=== PATIENT | male | born 1955 | race Caucasian/White ===

== ENCOUNTER 2017-07-14 16:00 | Emergency (ER) | payer OTHER ==
--- NOTE | 2017-07-14 16:42 | RAD ---
HISTORY: Head injury COMPARISONS: November 07, 2014 TECHNIQUE: Multiple contiguous axial CT scans were obtained of the head without intravenous contrast. FINDINGS: HEMORRHAGE/INFARCT: There is no hemorrhage or acute infarct. MASSES/SHIFT: There is no mass or shift. EXTRA-AXIAL SPACES: There are no extra-axial fluid collections. SULCI AND VENTRICLES: The sulci and ventricles are normal in size and position for the patient's stated age. CEREBRUM: There are no focal parenchymal abnormalities. BRAINSTEM: There are no focal parenchymal abnormalities. CEREBELLUM: There are no focal parenchymal abnormalities. VESSELS: The vessels are grossly normal. PARANASAL SINUSES: The paranasal sinuses are clear. ORBITS: The orbits are unremarkable. BONES AND SOFT TISSUE: No bone or soft tissue abnormalities are noted. OTHER: None IMPRESSION: NO ACUTE INTRACRANIAL PATHOLOGY.
[2017-07-14] MEDS ORDERED: Ondansetron ODT TAB* 4 MG PO ONE (16:59)
[2017-07-14] MEDS ORDERED: Ibuprofen TAB* 600 MG PO ONE (17:05)
--- NOTE | 2017-07-14 17:30 | RAD ---
HISTORY: Head injury, nausea, dizziness, neck pain status post fall COMPARISONS: November 07, 2014 TECHNIQUE: Multiple contiguous axial CT scans were obtained of the cervical spine without intravenous contrast, with coronal and sagittal multiplanar reformations. FINDINGS: BRAIN: The visualized brain is unremarkable CENTRAL CANAL: Evaluation of the central canal is limited on CT technique; however, there is no obvious canalicular mass or epidural hemorrhage. ALIGNMENT: There is straightening of the cervical lordosis. VERTEBRAL BODIES: There is multilevel anterolateral marginal osteophyte formation. The patient is status post laminectomy at C4-C5, C5-C6, and C6-C7. There is no displaced fracture. JOINTS: There is uncovertebral and facet osteoarthritis. MUSCULATURE: Unremarkable INTERVERTEBRAL DISCS: There is diffuse loss of intervertebral disc height. AXIAL IMAGES: On axial images, there is diffuse multilevel neural foraminal narrowing secondary to uncovertebral and facet hypertrophy. There is no osseous central canal stenosis. SOFT TISSUES: The visualized soft tissues of the neck are unremarkable. The prevertebral fat stripe is preserved. OTHER: None. IMPRESSION: 1. POST SURGICAL CHANGE. 2. DEGENERATIVE DISC DISEASE AND OSTEOARTHRITIS. 3. NO ACUTE OSSEOUS INJURY TO THE CERVICAL SPINE
--- NOTE | 2017-07-14 17:57 | RAD ---
HISTORY: Right knee pain status post fall COMPARISONS: None VIEWS: 4, Frontal, lateral, axial, and oblique views of the right knee FINDINGS: BONE DENSITY: Normal. BONES: There is no displaced fracture. JOINTS: There is moderate tricompartmental osteoarthritis. There is no suprapatellar joint effusion or lipohemarthrosis. ALIGNMENT: There is no dislocation. SOFT TISSUES: Unremarkable. OTHER FINDINGS: None. IMPRESSION: OSTEOARTHRITIS. NO ACUTE OSSEOUS INJURY. IF SYMPTOMS PERSIST, RECOMMEND REPEAT IMAGING.
--- NOTE | 2017-07-14 17:58 | RAD ---
HISTORY: Right elbow pain status post fall COMPARISONS: None VIEWS: 4, Frontal, lateral, and oblique views of the right elbow FINDINGS: BONE DENSITY: Normal. BONES: There is no displaced fracture. JOINTS: There is no arthropathy. The There is no posterior supracondylar fat pad to suggest a joint effusion. ALIGNMENT: There is no dislocation. SOFT TISSUES: Unremarkable. OTHER FINDINGS: None. IMPRESSION: NO ACUTE OSSEOUS INJURY. IF SYMPTOMS PERSIST, RECOMMEND REPEAT IMAGING.
--- NOTE | 2017-07-14 17:58 | RAD ---
HISTORY: Right shoulder pain status post fall COMPARISONS: November 07, 2014 VIEWS: 4, Frontal internal rotation, external rotation, outlet, and axillary views of the right shoulder FINDINGS: BONE DENSITY: There is diffuse osteopenia. BONES: There is no displaced fracture. JOINTS: There is mild glenohumeral and a.c. osteoarthritis. ALIGNMENT: There is no dislocation. SOFT TISSUES: Unremarkable. OTHER FINDINGS: None. IMPRESSION: OSTEOARTHRITIS. NO ACUTE OSSEOUS INJURY. IF SYMPTOMS PERSIST, RECOMMEND REPEAT IMAGING.
[2017-07-14] MEDS ORDERED: Lidocaine 1%* 5 ML VIAL INJ ONE (18:46)
[2017-07-14] MEDS ORDERED: Lidocaine 1%* 5 ML VIAL ONE (18:47)
[2017-07-14] MEDS ORDERED: Cephalexin CAP* 500 MG PO ONE (19:40)
[2017-07-14] MEDS ORDERED: Tetan/Diph/Pertus SYR(Tdap)* 0.5 ML SYR(BOOSTRIX) use SYR IM ONE (19:41)
--- NOTE | 2017-07-14 19:52 | ED ---
Theresa William Thomas, scribed for Arturo Cerda MD on 07/14/17 at 1810 . Complex/Multi-Sys Presentation - HPI Summary HPI Summary: The pt is a 62 y/o M presenting to the ED c/o head pain and RUE pain after striking his head on a rock in an accidental fall earlier today. He c/o head pain, R-sided neck pain, R shoulder, R knee, R arm, and R elbow pain. He is unsure if he had LOC. He additionally c/o decreased hearing in his right ear, R ear pain, R-sided dental pain, and nausea. The pain is aggravated by nothing and is alleviated by nothing. The patient has treated the pain with nothing DIRECTOR PLANS. Pt denies vomiting, back pain, and rib pain. He is not on blood thinners. - History Of Current Complaint Chief Complaint: EDHeadInjury Time Seen by Provider: 07/14/17 16:33 Hx Obtained From: Patient Onset/Duration: Lasting Hours - earlier today, Still Present Timing: Constant Severity Currently: Moderate Location: Pain At: - Right upper extremity Aggravating Factor(s): None Alleviating Factor(s): None Associated Signs And Symptoms: Positive: Other - Nausea, pain in head, right neck, right shoulder, right arm, right elbow, ear, right dental, right knee; NEGATIVE: vomiting, back and rib pain - Allergies/Home Medications Allergies/Adverse Reactions: Allergies Allergy/AdvReac Type Severity Reaction Status Date / Time Iodinated Diagnostic Agents Allergy Mild Rash And Verified 04/06/14 18:39 Itching Penicillins Allergy Rash And Verified 04/06/14 16:54 Itching ENVIRONMENTAL/SEASONAL Allergy SNEEZE, Uncoded 04/06/14 16:54 HAYFEVER WATERY EYES PMH/Surg Hx/FS Hx/Imm Hx Previously Healthy: No Endocrine/Hematology History: Denies: Hx Diabetes Cardiovascular History: Reports: Hx Hypertension - ON MEDS, Other Cardiovascular Problems/Disorders - Hx HTN Denies: Hx Congestive Heart Failure, Hx Pacemaker/ICD Respiratory History: Reports: Other Respiratory Problems/Disorders - MILD Denies: Hx Asthma History: Denies: Hx Renal Disease Musculoskeletal History: Reports: Hx Back Problems, Other Musculoskeletal History - Laminectomy C4-5-6 Sensory History: Reports: Hx Cataracts - MILD, Hx Contacts or Glasses Denies: Hx Hearing Aid Opthamlomology History: Reports: Hx Cataracts - MILD, Hx Contacts or Glasses Neurological History: Reports: 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 2012 RIGHT INGUINAL HERNIA REPAIR [facility]. 1988 AND 1998 LEFT INGUINAL [place]ERNIA [place]PAIR, [facility] [place]. 2012 RT KNEE SCOPE Hx Anesthesia Reactions: Yes - 2011-VERY AGGRESSIVE WITH SEDATION THIS TIME ONLY - Immunization History Date of Tetanus Vaccine: Unk Date of Influenza Vaccine: None Infectious Disease History: No Infectious Disease History: Denies: Traveled Outside the [place] in Last 30 Days - Social History Alcohol Use: Occasionally Substance Use Type: Reports: None Hx Tobacco Use: No Smoking Status (MU): Never Smoked Tobacco Review of Systems Positive: Other - Head pain Positive: Dental Pain - Right side, Ear Ache Positive: Nausea. Negative: Vomiting Positive: Other - Pain in right neck, right shoulder, right arm, right elbow, right knee; NEGATIVE: back and rib pain All Other Systems Reviewed And Are Negative: Yes Physical Exam - Summary Physical Exam Summary: General: well-appearing, mild pain distress Skin: warm, color reflects adequate perfusion, dry. No skin lacerations. Right shoulder abrasion. Head: normal Eyes: EOMI, TOBI ENT: Tympanic membrane is normal. Tenderness with palpation to the tragus. Neck: supple. Tenderness with palpation to the right neck. Respiratory: CTA, breath sounds present. Cardiovascular: RRR. Good capillary refill. Abdomen: soft, nontender Bowel: present Musculoskeletal: Ecchymosis on right shoulder, right scapula, right elbow and right anterior knee. Right scapula is non-tender with palpation. Pain with ROM to the right shoulder and right elbow. Right anterior knee is tender with motion. Neurological: normal, sensory/motor intact, A&O x3 Psychological: affect/mood appropriate Triage Information Reviewed: Yes Vital Signs On Initial Exam: Initial Vitals Temp Pulse Resp BP Pulse Ox 98.4 F 120 20 117/83 97 07/14/17 16:02 07/14/17 16:02 07/14/17 16:02 07/14/17 16:02 07/14/17 16:02 Vital Signs Reviewed: Yes - [place] Coma Scale Coma Scale Total: 15 Procedures - Laceration/Wound Repair 1 Location: head Description: Irregular Anesthesia: Local, 1.0%, [place] Length, Depth and Shape: 2.5CM SC IRREGULAR Betadine Prep?: No - IRRIGATED WITH SHUR CLENS AND SALINE 30CC Laceration/Wound Explored: clean, no foreign body removed Closure: Single Layer Suture Type: Prolene - 4-0 PROLENE, #5 Number of Sutures: 5 Layer Closure?: No Sterile Dressing Applied?: Yes Diagnostics - Vital Signs Vital Signs Temp Pulse Resp BP Pulse Ox 07/14/17 16:02 98.4 F 120 20 117/83 97 - Laboratory Lab Statement: Any lab studies that have been ordered have been reviewed, and results considered in the medical decision making process. - Radiology XR Shoulder Xray Interpretation: No Acute Changes - OSTEOARTHRITIS. NO ACUTE OSSEOUS INJURY. IF SYMPTOMS PERSIST, RECOMMEND REPEAT IMAGING. ED Physician has reviewed this report and agrees. Radiology Interpretation Completed By: Radiologist XR Knee Xray Interpretation: No Acute Changes - OSTEOARTHRITIS. NO ACUTE OSSEOUS INJURY. IF SYMPTOMS PERSIST, RECOMMEND REPEAT IMAGING. ED Physician has reviewed this report and agrees. Radiology Interpretation Completed By: Radiologist XR Elbow Xray Interpretation: No Acute Changes - NO ACUTE OSSEOUS INJURY. IF SYMPTOMS PERSIST, RECOMMEND REPEAT IMAGING. ED Physician has reviewed this report and agrees. Radiology Interpretation Completed By: Radiologist - CT CT C-Spine CT Interpretation: No Acute Changes - 1. POST SURGICAL CHANGE. 2. DEGENERATIVE DISC DISEASE AND OSTEOARTHRITIS. 3. NO ACUTE OSSEOUS INJURY TO THE CERVICAL SPINE. ED physician has reviewed this report and agrees. CT Interpretation Completed By: Radiologist CT Brain CT Interpretation: No Acute Changes - NO ACUTE INTRACRANIAL PATHOLOGY. ED Physician has reviewed this report and agrees. CT Interpretation Completed By: Radiologist Complex Multi-Symp Course/Dx Course Of Treatment: Medications reviewed. Allergies noted. DISCUSSED RESULTS WITH PATIENT AND FAMILY. LACERATION CLOSED. TDap GIVEN. NO CRITICAL CARE TIME. - Diagnoses Provider Diagnoses: Head injury, Concussion, Scalp laceration, Shoulder contusion, Cervical strain , Contusion of knee, right Discharge - Discharge Plan Condition: Stable Disposition: HOME Prescriptions: Cephalexin CAP* [Keflex CAP*] 500 mg PO TID #20 cap Patient Education Materials: Head Injury (ED), Concussion (ED), Cervical Strain (ED), Shoulder Sprain (ED), Knee Pain (ED), Contusion in Adults (ED), Care For Your Stitches (ED), Laceration (ED) Forms: *Work Release Referrals: Scot Maloney MD [Primary Care Provider] - Additional Instructions: FOLLOW UP WITH YOUR DOCTOR. SUTURES OUT IN 7-10 DAYS. RETURN TO THE EMERGENCY DEPARTMENT FOR ANY WORSENING OF YOUR CONDITION; WEAKNESS , NUMBNESS, FEVER, SIGNS OF INFECTION, YOU DO NOT FEEL WELL, SHORTNESS OF BREATH OR QUESTIONS OR CONCERNS. The documentation as recorded by the Theresa munoz Thomas accurately reflects the service I personally performed and the decisions made by me, Arturo Cerda MD.
[2017-07-14] MEDS: Cephalexin CAP* 500 MG PO ONE (19:59)
[2017-07-14 20:13] VITALS: BP 114/84
== END 2017-07-14 20:12 | disposition home or self-care (01) ==
LOC: ED 16:00
DX: S09.90XA Unspecified injury of head, initial encounter (principal); S06.0X0A Concussion without loss of consciousness, initial encounter; S01.01XA Laceration without foreign body of scalp, initial encounter; S16.1XXA Strain of muscle, fascia and tendon at neck level, initial encounter; S80.01XA Contusion of right knee, initial encounter; I10 Essential (primary) hypertension; W01.198A Fall on same level from slipping, tripping and stumbling with subsequent striking against other object, initial encounter; Y92.9 Unspecified place or not applicable
CPT/HCPCS: 12001; 70450; 72125; 90471; 90715; 99283; A9270-GY

== ENCOUNTER 2017-07-16 21:28 | Emergency (ER) | payer OTHER ==
[2017-07-16] MEDS ORDERED: NS 0.9% 1000 ML* 1,000 ML IV ONE (22:23)
[2017-07-16] MEDS ORDERED: Clindamycin 600 MG IVPREMIX(* 600 MG/50 ML SDV IV ONE (22:37)
[2017-07-16 23:10] LABS: Hematocrit 42 % (42-52); Hemoglobin 13.8 g/dl (14.0-18.0); Mean Corpuscular HGB Conc 33 g/dl (31-36); Mean Corpuscular Hemoglobin 31 pg (27-31); Mean Corpuscular Volume 92 fL (80-94); Mean Platelet Volume 8 um3 (7.4-10.4); Red Blood Count 4.54 10^6/ul (4.0-5.4); Red Cell Distribution Width 13 % (10.5-15); White Blood Count 10.3 10^3/ul (3.5-10.8)
[2017-07-16] MEDS ORDERED: oxyCODONE/Acetamin 5/325 MG* TAB PO ONE (23:20)
[2017-07-16 23:30] LABS: Albumin 3.7 g/dL (3.2-5.2); BUN/Creatinine Ratio 20.5 (8-20); Calcium 9.1 mg/dL (8.6-10.3); EGFR African American 112.5 (>60); EGFR Non-African American 87.5 (>60); Globulin 2.9 g/dL (2-4); Potassium 3.8 mmol/L (3.5-5.0); Total Bilirubin 0.2 mg/dL (0.2-1.0); Total Protein 6.6 g/dL (6.4-8.9)
[2017-07-16] MEDS ORDERED: Ondansetron ODT TAB* 4 MG PO ONE (23:35)
[2017-07-17] MEDS ORDERED: oxyCODONE/Acetamin 5/325 MG* TAB PO ONE (00:16)
--- NOTE | 2017-07-17 00:17 | ED ---
Skin Complaint - HPI Summary HPI Summary: 62M presents with increasing pressure and pus drainage from right scalp laceration. He fell [facility] two days ago and had a scalp laceration. The area was sutured with 5 sutures. He states he has been taking the keflex and everything was doing fine until today he felt the pressure and now has extreme pain. He denies any fever. He states that the redness has been spreading down his neck. states feels like something is about to burst from head. pain is 10/10. no history of MRSA. is not diabetic. - History of Current Complaint Chief Complaint: EDLacSutureRecheck Time Seen by Provider: 07/16/17 22:03 Stated Complaint: INFLAMMATION IN STITCHES IN HEAD Pain Intensity: 4 - Allergy/Home Medications Allergies/Adverse Reactions: Allergies Allergy/AdvReac Type Severity Reaction Status Date / Time Iodinated Diagnostic Agents Allergy Mild Rash And Verified 04/06/14 18:39 Itching Penicillins Allergy Rash And Verified 04/06/14 16:54 Itching ENVIRONMENTAL/SEASONAL Allergy SNEEZE, Uncoded 04/06/14 16:54 HAYFEVER WATERY EYES PMH/Surg Hx/FS Hx/Imm Hx Endocrine/Hematology History: Denies: Hx Diabetes Cardiovascular History: Reports: Hx Hypertension - ON MEDS, Other Cardiovascular Problems/Disorders - Hx HTN Denies: Hx Congestive Heart Failure, Hx Pacemaker/ICD Respiratory History: Reports: Other Respiratory Problems/Disorders - MILD Denies: Hx Asthma History: Denies: Hx Renal Disease Musculoskeletal History: Reports: Hx Back Problems, Other Musculoskeletal History - Laminectomy C4-5-6 Sensory History: Reports: Hx Cataracts - MILD, Hx Contacts or Glasses Denies: Hx Hearing Aid Opthamlomology History: Reports: Hx Cataracts - MILD, Hx Contacts or Glasses Neurological History: Reports: Hx Spinal Cord Injury - LAMINECTOMY C4-6 Psychiatric History: Denies: Hx Panic Disorder - Surgical History Surgery Procedure, Year, and Place: 2004 C4,5,6[place] [facility] [place] [facility] [place]. 1988 AND 1998 LEFT INGUINAL [place], [facility] [place]. 2012 RT KNEE SCOPE Hx Anesthesia Reactions: Yes - 2011-VERY AGGRESSIVE WITH SEDATION THIS TIME ONLY - Immunization History Date of Tetanus Vaccine: Unk Date of Influenza Vaccine: None Infectious Disease History: No Infectious Disease History: Denies: Traveled Outside the [place] in Last 30 Days - Family History Known Family History: Negative: Diabetes - Social History Alcohol Use: Occasionally Substance Use Type: Reports: None Hx Tobacco Use: No Smoking Status (MU): Never Smoked Tobacco Review of Systems Negative: Fever Negative: Chest Pain Negative: Shortness Of Breath Positive: Other - pain under laceration All Other Systems Reviewed And Are Negative: Yes Physical Exam Triage Information Reviewed: Yes Vital Signs On Initial Exam: Initial Vitals Temp Pulse Resp BP Pulse Ox 97.6 F 102 20 154/93 95 07/16/17 21:42 07/16/17 21:42 07/16/17 21:42 07/16/17 21:42 07/16/17 21:42 Vital Signs Reviewed: Yes Appearance: Positive: Well-Appearing Skin: Positive: Warm, Dry, Other - 2cm healing laceration with pus and 7cm by 4cm area of erythema with warmth down neck Eyes: Positive: Normal, EOMI, TOBI, Conjunctiva Clear ENT: Positive: Normal ENT inspection, Pharynx normal, TM bulging Respiratory/Lung Sounds: Positive: Clear to Auscultation, Breath Sounds Present Cardiovascular: Positive: Normal, RRR Musculoskeletal: Positive: Normal Neurological: Positive: Normal Psychiatric: Positive: Normal - Odd Coma Scale Coma Scale Total: 15 Procedures - Incision and Drainage Site: scalp Anesthesia: Local Instrument(s): Other - opened suture area Packing: Gauze Diagnostics - Vital Signs Vital Signs Temp Pulse Resp BP Pulse Ox 07/16/17 23:39 18 07/16/17 21:42 97.6 F 102 20 154/93 95 - Laboratory Lab Results: Lab Results 07/16/17 07/16/17 07/16/17 Range/Units 22:50 22:50 22:50 WBC 10.3 (3.5-10.8) 10^3/ul RBC 4.54 (4.0-5.4) 10^6/ul Hgb 13.8 L (14.0-18.0) g/dl Hct 42 (42-52) % MCV 92 (80-94) fL MCH 31 (27-31) pg MCHC 33 (31-36) g/dl RDW 13 (10.5-15) % Plt Count 199 (150-450) 10^3/ul MPV 8 (7.4-10.4) um3 Neut % (Auto) 63.3 (38-83) % Lymph % (Auto) 25.2 (25-47) % Russell % (Auto) 8.5 (1-9) % Eos % (Auto) 1.8 (0-6) % Baso % (Auto) 1.2 (0-2) % Absolute Neuts (auto) 6.5 (1.5-7.7) 10^3/ul Absolute Lymphs (auto) 2.6 (1.0-4.8) 10^3/ul Absolute Monos (auto) 0.9 H (0-0.8) 10^3/ul Absolute Eos (auto) 0.2 (0-0.6) 10^3/ul Absolute Basos (auto) 0.1 (0-0.2) 10^3/ul Absolute Nucleated RBC 0.01 10^3/ul Nucleated RBC % 0.1 Sodium 135 (133-145) mmol/L Potassium 3.8 (3.5-5.0) mmol/L Chloride 104 (101-111) mmol/L Carbon Dioxide 26 (22-32) mmol/L Anion Gap 5 (2-11) mmol/L BUN 18 (6-24) mg/dL Creatinine 0.88 (0.67-1.17) mg/dL Est GFR ( Amer) 112.5 (>60) Est GFR (Non-Af Amer) 87.5 (>60) BUN/Creatinine Ratio 20.5 H (8-20) Glucose 133 H (70-100) mg/dL Lactic Acid 1.1 (0.5-2.0) mmol/L Calcium 9.1 (8.6-10.3) mg/dL Total Bilirubin 0.20 (0.2-1.0) mg/dL AST 15 (13-39) U/L ALT 16 (7-52) U/L Alkaline Phosphatase 59 (34-104) U/L C-React Prot High Sens 49.48 mg/L Total Protein 6.6 (6.4-8.9) g/dL Albumin 3.7 (3.2-5.2) g/dL Globulin 2.9 (2-4) g/dL Albumin/Globulin Ratio 1.3 (1-3) Result Diagrams: 07/16/17 22:50 07/16/17 22:50 Lab Statement: Any lab studies that have been ordered have been reviewed, and results considered in the medical decision making process. - Radiology neck Xray Interpretation: Positive (See Comments) - swelling right temrproarl scalp Radiology Interpretation Completed By: Radiologist Course/Dx - Course Course Of Treatment: 62M presents with increasing pressure and pus drainage from right scalp laceration. He [place] [facility] two days ago and had a scalp laceration. The area was sutured with 5 sutures. He states he has been taking the keflex and everything was doing fine until today he felt the pressure and now has extreme pain. He denies any fever. He states that the redness has been spreading down his neck. states feels like something is about to burst from head. pain is 10/10. no history of MRSA. is not diabetic. on exam has erythema around lacerations with pus from wound. removed sutures and drain wound and placed packing. about 15cc from wound. CT shows cellulitis and abscess. labs normal wbc and lactic. will discharge with bactrim to cover for MRSA. told to return to have packing changed in two days. - Differential Diagnoses - Skin Complaint Differential Diagnoses: Abscess, Cellulitis, Other - dehiscence - Diagnoses Provider Diagnoses: Wound abscess Discharge - Discharge Plan Condition: Good Disposition: HOME Prescriptions: Sulfamethox/Trimethoprim DS* [Bactrim DS 800/160 TAB*] 1 tab PO BID #20 tab oxyCODONE/Acetamin 5/325 MG* [Percocet 5/325 TAB*] 1 tab PO Q6H PRN #12 tab MDD 4 PRN Reason: Pain Patient Education Materials: Abscess (ED) Forms: *Work Release Referrals: Scot Maloney MD [Primary Care Provider] - Additional Instructions: Take antibiotic twice a day for 10 days, first dose given in ED, Continue keflex as prescribed Apply warm compresses to area Take ibuprofen or Tylenol for pain every 6 hours Return to ED or urgent care in two days for wound check Return to ED if develop fever, area of redness spreads after two days on antibiotic, or any new or worsening symptoms
[2017-07-17 00:54] VITALS: BP 144/91
--- NOTE | 2017-07-17 07:50 | RAD ---
INDICATION: "Infected wound behind right ear" COMPARISON: CT cervical spine dated July 14, 2017 TECHNIQUE: A CT scan of the neck was performed without contrast. Contiguous axial sections were obtained from the skull base through the lung apices. Images were reconstructed in the coronal and sagittal planes. FINDINGS: In the soft tissue overlying the right temporal bone just posterior and inferior to the right ear there are several foci of subcutaneous gas (image 84 of 102) and thickening of the subcutaneous tissue up to 1.3 cm in thickness. There is no drainable fluid collection. The airway is patent. The epiglottis and aryepiglottic folds appear within normal limits. No retropharyngeal soft tissue swelling is noted. No significant enlarged nodes are seen. The parotid and submandibular glands appear to be within normal limits. The thyroid gland appears normal. The lung apices appear clear. The visualized portion of the paranasal sinuses and mastoid air cells appear clear. No significant focal osseous abnormality is seen. IMPRESSION: In the subcutaneous tissue overlying the right temporal bone below the right ear there is thickening of the tissue with subcutaneous gas which could be associated with trauma if recent or infection due to gas-forming microorganisms if subacute/chronic. There is no drainable fluid collection. The subjacent mastoid air cells are well aerated and there are no signs of intracranial infection.
== END 2017-07-17 00:53 | disposition home or self-care (01) ==
LOC: ED 21:28
DX: S01.01XA Laceration without foreign body of scalp, initial encounter (principal); T81.4XXA Infection following a procedure, initial encounter; L02.91 Cutaneous abscess, unspecified; W19.XXXA Unspecified fall, initial encounter; Y93.9 Activity, unspecified; Y92.9 Unspecified place or not applicable; Z86.79 Personal history of other diseases of the circulatory system
CPT/HCPCS: 36415; 70490; 80053; 83605; 85025; 86141; 87040; 87070; 87077; 87186; 87205; 99283; A9270-GY

== ENCOUNTER 2024-09-05 07:07 | Observation (INO) ==
[~2024-09-05 07:07] MED LIST: Bupivacaine 0.25% SDV 30 ML ONE
[2024-09-05] MEDS ORDERED: Lidocaine 2% PF 5 ML VIAL ONE (07:17)
[2024-09-05] MEDS ORDERED: Midazolam 2 mg/2 ml VIAL 1 mg/ml 2 ml VIAL (2 mg) ONE ×2 (07:18→09:31)
[2024-09-05] MEDS ORDERED: fentaNYL 250 mcg/5 ml 50 MCG/ML 5 ml VIAL (250 MCG) ONE (07:18)
[2024-09-05] MEDS ORDERED: Tranexamic Acid 1 GM/100ML BAG 2,000 MG/200 ML BAG IV ONE (07:35)
[2024-09-05] MEDS ORDERED: ceFAZolin *3* GM in NS PREMIX 3 GM/100 ML BAG IV ONE (07:35)
[2024-09-05 07:47] LABS: Rapid COVID-19 Molecular Undetected (Undetected)
[2024-09-05] MEDS ORDERED: Tranexamic Acid 1,000 MG/10 ML SDV ONE (08:02)
[2024-09-05] MEDS ORDERED: KETAMINE HCL 10 MG/ML 20 ml VIAL (200 MG) ONE (09:06)
[2024-09-05] MEDS ORDERED: Ondansetron 4 mg VIAL 2 MG/ML 2 ml VIAL ONE (09:27)
[2024-09-05] MEDS ORDERED: Dexamethasone IV 4 MG/ML VIAL 1 ml VIAL ONE (09:27)
[2024-09-05] MEDS ORDERED: Propofol 10 MG/ML 20 ML BTL ONE ×3 (10:31→11:10)
[2024-09-05] MEDS ORDERED: fentaNYL 100 mcg/2 ml 50 MCG/ML VIAL ONE ×2 (11:38→12:09)
[2024-09-05] MEDS ORDERED: Magnesium Hydroxide LIQ 30 ML UDC PO PRN (11:38)
[2024-09-05] MEDS ORDERED: Calcium Carb (TUMS) 500 mg CHEW TAB PO PRN (11:38)
[2024-09-05] MEDS ORDERED: Ondansetron 4 mg VIAL 2 MG/ML 2 ml VIAL IV PRN ×2 (11:38→11:50)
[2024-09-05] MEDS ORDERED: Ondansetron ODT 4 mg TAB 4 MG TAB PO PRN (11:38)
[2024-09-05] MEDS ORDERED: Lactulose 30 ml UDC PO PRN (11:38)
[2024-09-05] MEDS ORDERED: Morphine 2 MG/ML SYRINGE IV PRN (11:38)
[2024-09-05] MEDS ORDERED: Naloxone 0.4 mg VIAL 0.4 mg/ml 1 ml VIAL IV PRN (11:50)
[2024-09-05] MEDS ORDERED: Metoclopramide 5 MG/ML VIAL (10 mg) IV PRN (11:50)
[2024-09-05] MEDS: fentaNYL 100 mcg/2 ml 50 MCG/ML VIAL IV PRN (11:54)
[2024-09-05] MEDS ORDERED: NS 0.45% 1000 ml BAG 1,000 ML IV SCH (12:00)
[2024-09-05] MEDS: Lactated Ringers 1000 ml BAG 1,000 ML IV SCH ×2 (14:32→15:50)
[2024-09-05] MEDS: Acetaminophen IV 1 GM/100ML 1,000 MG/100 ML BAG IV ONE (15:48)
[2024-09-05] MEDS: BUPIVACAINE **LIPOSOME/PF 13.3 MG/ML (266MG/ 20ML) VIAL (RESTRICTED) INFIL ONE (15:48)
[2024-09-05] MEDS: Buffered Lidocaine 1% SYRIN 1 ml INTRADERM ONE (15:48)
[2024-09-05] MEDS: Scopolamine 1 mg/72hr PATCH TRANSDERM ONE (15:48)
[2024-09-05] MEDS: ceFAZolin *3* GM in NS PREMIX 3 GM/100 ML BAG IV SCH (15:49)
[2024-09-05] MEDS: ceFAZolin 2 GM PREMIX 2 GM/50 ML BAG IV SCH (16:28)
[2024-09-05] MEDS ORDERED: Albuterol HFA INHALER 8 gm MDI INH PRN (16:41)
[2024-09-05] MEDS ORDERED: Polyethylene Glycol 3350 17 GM PACKET PO PRN (16:48)
[2024-09-05] MEDS: ceFAZolin 1 GM in Dextrose 1 GM/50 ML BAG IVPB SCH (17:45)
[2024-09-05] MEDS: Mometasone/Formoter 200/5 MDI INH SCH (19:35)
[2024-09-05] MEDS: Magnesium Hydroxide LIQ 30 ML UDC PO SCH (21:09)
[2024-09-05] MEDS: Senna TAB 8.6 mg TAB PO SCH (21:10)
[2024-09-06 06:13] LABS: Hematocrit 39.7 % (38-53); Hemoglobin 13.4 g/dL (13.2-16.3); Mean Platelet Volume 7.3 fL (7.5-11.2); Platelet Count 160 10^3/uL (150-450)
[2024-09-06 06:39] LABS: Calcium 8.8 mg/dL (8.6-10.3); Creatinine, Serum 1.15 mg/dL (0.67-1.17); Potassium 4.3 mmol/L (3.5-5.0); eGFR CKD-EPI 68.5 (>60)
[2024-09-06] MEDS: Vitamin THERAPEUTIC TAB PO SCH (09:08)
[2024-09-06 09:54] VITALS: BP 132/80
== END 2024-09-06 13:20 | disposition home or self-care (01) ==
LOC: OR 07:07 → SSU 07:07
PROVIDERS: ADMIT Orthopaedic Surgery Sports Medicine; ATTEND Orthopaedic Surgery Sports Medicine